=== PATIENT | female | born 1955 | race African-American/Black ===

== ENCOUNTER 2020-08-01 13:23 | Inpatient (IN) ==
[2020-08-01] MEDS ORDERED: LACTATED RINGERS 500 ML IV ONE (14:33)
[2020-08-01] MEDS ORDERED: cefTRIAXone 1,000 MG in SODIUM CHLORIDE 0.9% 100 ML IV STA (14:33)
[2020-08-01 14:42] LABS: Basophils % 0.1 % (0.0-0.8); Eosinophils % 0.1 % (0.00-10.9); Hematocrit 30.2 VOL% (35.7-47.0); Hemoglobin 9.7 GM/DL (12.0-16.0); Immature Granulocytes % 0.3 %; Immature Granulocytes Absolute 0.03 #; Lymphocytes # 0.9 10*3/uL (1.4-4.0); Lymphocytes % 9.7 % (21.3-54.2); Mean Corpuscular HGB Conc 32.1 GM/DL (32-36); Mean Corpuscular Volume 89.6 FL (87-102); Mean Platelet Volume 10.5 FL (9.6-12.0); Neutrophils % 85.8 % (38.7-73.9); Platelet Count 346 T/CUMM (130-400); Red Blood Count 3.37 MC/CUMM (3.8-5.5); Red Cell Distribution Width 17.2 % (9.3-17.3); White Blood Count 8.8 T/CUMM (4-12)
[2020-08-01 14:55] LABS: Alanine Aminotransferase 31 U/L (13-56); Albumin 3.1 G/DL (3.4-5.0); Alkaline Phosphatase 130 U/L (45-117); Aspartate Amino Transferase 43 U/L (0-37); Bilirubin,Total < 0.39 MG/DL (0.2-1.0); Blood Urea Nitrogen 25 MG/DL (7-18); Calcium 8.9 MG/DL (8.5-10.1); Carbon Dioxide 20 MMOL/L (21-32); Estimated Glom Filtration Rate 40 ML/MIN; Glucose 131 MG/DL (74-106); Osmolality,Calculated 273.2 MOS/KG (273-304); Potassium 4.3 MMOL/L (3.5-5.1); Sodium 134 MMOL/L (136-145); Total Protein 8.3 G/DL (6.4-8.3)
[2020-08-01] MEDS: AZITHROMYCIN INJ 500 MG in SODIUM CHLORIDE 0.9% 250 ML IV SCH (15:37)
[2020-08-01] MEDS ORDERED: ONDANSETRON 4 MG/2 ML VIAL IV PRN (15:44)
[2020-08-01] MEDS ORDERED: DEXTROSE 50% 25 GM/50 ML VIAL IV PRN (15:44)
[2020-08-01] MEDS ORDERED: ACETAMINOPHEN 325 MG TABLET PO PRN (15:44)
[2020-08-01] MEDS ORDERED: DOCUSATE SODIUM 100 MG CAPSULE PO PRN (15:44)
[2020-08-01] MEDS ORDERED: GLUCAGON 1 MG VIAL IM PRN (15:44)
[2020-08-01] MEDS ORDERED: methylPREDNISolone SOD SUC 125 MG/2 ML VIAL IV ONE (15:48)
[2020-08-01 16:18] LABS: Risk Ratio 2.43; Thyroid Stimulating Hormone 1.19 uIU/ml (0.358-3.74); VLDL CHOLESTEROL 32.6 MG/DL
[2020-08-01 16:26] LABS: ABG Base Excess -5.4 MMOL/L (-2.5-2.5); ABG Oxygen Saturation 96.8 % (95-100); ABG PCO2 34.2 MM HG (35-48); ABG PO2 92.9 MM HG (80-95); ABG TCO2 17.6 MMOL/L (23-27)
[2020-08-01] MEDS: ENOXAPARIN 40 MG/0.4 ML SYRINGE SUBCUT SCH (18:03)
[2020-08-01] MEDS: METOPROLOL SUCCINATE XL 25 MG TABLET PO SCH (18:04)
[2020-08-01] MEDS: FUROSEMIDE 20 MG TABLET PO SCH (18:04)
[2020-08-01] MEDS: ALBUTEROL/IPRATROPIUM 3 ML NEB RESP TX SCH (19:58)
[2020-08-01] MEDS: PREGABALIN 75 MG CAPSULE PO SCH (23:27)
[2020-08-01] MEDS: ATORVASTATIN 20 MG TABLET PO SCH (23:27)
[2020-08-01] MEDS: MOMETASONE/FORMOTEROL 200-5 INHALER 8.8 GM INH SCH (23:34)
[2020-08-02] MEDS: ALBUTEROL/IPRATROPIUM 3 ML NEB RESP TX SCH ×4 (00:57→19:36)
[2020-08-02 06:03] LABS: Basophils % 0.2 % (0.0-0.8); Hematocrit 27.1 VOL% (35.7-47.0); Hemoglobin 8.6 GM/DL (12.0-16.0); Immature Granulocytes % 0.4 %; Immature Granulocytes Absolute 0.02 #; Lymphocytes % 21.4 % (21.3-54.2); Mean Corpuscular HGB Conc 31.7 GM/DL (32-36); Mean Corpuscular Volume 90.6 FL (87-102); Mean Platelet Volume 10.9 FL (9.6-12.0); Monocytes % 9.4 % (1.7-12.7); Neutrophils % 68.6 % (38.7-73.9); Platelet Count 304 T/CUMM (130-400); Red Blood Count 2.99 MC/CUMM (3.8-5.5); Red Cell Distribution Width 17.2 % (9.3-17.3); White Blood Count 4.9 T/CUMM (4-12)
[2020-08-02 06:26] LABS: Calcium 8.4 MG/DL (8.5-10.1); Osmolality,Calculated 278.8 MOS/KG (273-304); Potassium 4.6 MMOL/L (3.5-5.1)
[2020-08-02] MEDS: SERTRALINE 50 MG TABLET PO SCH (11:04)
[2020-08-02] MEDS: FOLIC ACID 1 MG TABLET PO SCH (11:04)
[2020-08-02] MEDS: PANTOPRAZOLE 40 MG TABLET PO SCH (11:04)
[2020-08-02] MEDS: PREGABALIN 75 MG CAPSULE PO SCH ×2 (11:04→22:07)
[2020-08-02] MEDS: SPIRONOLACTONE 25 MG TABLET PO SCH (11:05)
[2020-08-02] MEDS: FUROSEMIDE 20 MG TABLET PO SCH (11:05)
[2020-08-02] MEDS: methylPREDNISolone SOD SUC 40 MG/1 ML VIAL IV SCH ×2 (11:05→18:46)
[2020-08-02] MEDS: METOPROLOL SUCCINATE XL 25 MG TABLET PO SCH (11:09)
[2020-08-02] MEDS: MOMETASONE/FORMOTEROL 200-5 INHALER 8.8 GM INH SCH ×2 (11:09→22:06)
[2020-08-02] MEDS: AZITHROMYCIN INJ 500 MG in SODIUM CHLORIDE 0.9% 250 ML IV SCH (18:30)
[2020-08-02] MEDS: cefTRIAXone 1,000 MG in SYRINGE 1 EACH IV SCH (18:30)
[2020-08-02] MEDS: ENOXAPARIN 40 MG/0.4 ML SYRINGE SUBCUT SCH (18:46)
[2020-08-02] MEDS: ATORVASTATIN 20 MG TABLET PO SCH (22:06)
[2020-08-03] MEDS: ALBUTEROL/IPRATROPIUM 3 ML NEB RESP TX SCH ×4 (00:59→19:38)
[2020-08-03] MEDS: methylPREDNISolone SOD SUC 40 MG/1 ML VIAL IV SCH ×3 (01:19→21:48)
[2020-08-03 07:53] LABS: Hematocrit 28.2 VOL% (35.7-47.0); Hemoglobin 8.9 GM/DL (12.0-16.0); Immature Granulocytes % 0.5 %; Immature Granulocytes Absolute 0.05 #; Lymphocytes % 9.3 % (21.3-54.2); Mean Corpuscular HGB Conc 31.6 GM/DL (32-36); Mean Corpuscular Volume 90.4 FL (87-102); Mean Platelet Volume 10.5 FL (9.6-12.0); Monocytes % 5.2 % (1.7-12.7); Platelet Count 379 T/CUMM (130-400); Red Blood Count 3.12 MC/CUMM (3.8-5.5); Red Cell Distribution Width 17.2 % (9.3-17.3); White Blood Count 10.9 T/CUMM (4-12)
[2020-08-03 08:07] LABS: Calcium 8.5 MG/DL (8.5-10.1); Osmolality,Calculated 280.8 MOS/KG (273-304); Potassium 4.7 MMOL/L (3.5-5.1)
[2020-08-03] MEDS: FUROSEMIDE 20 MG TABLET PO SCH (09:07)
[2020-08-03] MEDS: FOLIC ACID 1 MG TABLET PO SCH (09:07)
[2020-08-03] MEDS: METOPROLOL SUCCINATE XL 25 MG TABLET PO SCH (09:07)
[2020-08-03] MEDS: SPIRONOLACTONE 25 MG TABLET PO SCH (09:07)
[2020-08-03] MEDS: SERTRALINE 50 MG TABLET PO SCH (09:07)
[2020-08-03] MEDS: PREGABALIN 75 MG CAPSULE PO SCH ×2 (09:07→21:51)
[2020-08-03] MEDS: PANTOPRAZOLE 40 MG TABLET PO SCH (09:07)
[2020-08-03] MEDS: MOMETASONE/FORMOTEROL 200-5 INHALER 8.8 GM INH SCH ×2 (09:17→22:12)
[2020-08-03] MEDS ORDERED: PHENOL 1.4% THROAT SPRAY 177 ML BOTTLE PO PRN (10:25)
[2020-08-03 10:29] LABS: % Iron Saturation 4.9 % (18-50)
[2020-08-03] MEDS ORDERED: FERRIC GLUCONATE COMPLEX 125 MG in SODIUM CHLORIDE 0.9% 100 ML IV ONE (10:30)
[2020-08-03 10:32] LABS: Folate 18.5 NG/ML (5.38-24.0)
[2020-08-03] MEDS: cefTRIAXone 1,000 MG in SYRINGE 1 EACH IV SCH (15:18)
[2020-08-03] MEDS: AZITHROMYCIN INJ 500 MG in SODIUM CHLORIDE 0.9% 250 ML IV SCH (15:18)
[2020-08-03] MEDS: ENOXAPARIN 40 MG/0.4 ML SYRINGE SUBCUT SCH (17:03)
[2020-08-03] MEDS: ATORVASTATIN 20 MG TABLET PO SCH (21:51)
[2020-08-04] MEDS: ALBUTEROL/IPRATROPIUM 3 ML NEB RESP TX SCH ×3 (00:26→13:10)
[2020-08-04 06:08] LABS: Basophils % 0.1 % (0.0-0.8); Hematocrit 28.3 VOL% (35.7-47.0); Immature Granulocytes % 0.8 %; Immature Granulocytes Absolute 0.13 #; Lymphocytes # 1.2 10*3/uL (1.4-4.0); Lymphocytes % 7.7 % (21.3-54.2); Mean Corpuscular HGB Conc 31.8 GM/DL (32-36); Mean Corpuscular Volume 90.4 FL (87-102); Mean Platelet Volume 10.3 FL (9.6-12.0); Monocytes % 5.1 % (1.7-12.7); Neutrophils % 86.3 % (38.7-73.9); Platelet Count 415 T/CUMM (130-400); Red Blood Count 3.13 MC/CUMM (3.8-5.5); Red Cell Distribution Width 17.2 % (9.3-17.3); White Blood Count 15.5 T/CUMM (4-12)
[2020-08-04 06:36] LABS: Calcium 8.9 MG/DL (8.5-10.1); Osmolality,Calculated 276.1 MOS/KG (273-304); Potassium 4.1 MMOL/L (3.5-5.1)
[2020-08-04] MEDS: methylPREDNISolone SOD SUC 40 MG/1 ML VIAL IV SCH (09:36)
[2020-08-04] MEDS: SERTRALINE 50 MG TABLET PO SCH (09:36)
[2020-08-04] MEDS: METOPROLOL SUCCINATE XL 25 MG TABLET PO SCH (09:36)
[2020-08-04] MEDS: PANTOPRAZOLE 40 MG TABLET PO SCH (09:37)
[2020-08-04] MEDS: SPIRONOLACTONE 25 MG TABLET PO SCH (09:37)
[2020-08-04] MEDS: PREGABALIN 75 MG CAPSULE PO SCH (09:37)
[2020-08-04] MEDS: FOLIC ACID 1 MG TABLET PO SCH (09:37)
[2020-08-04] MEDS: FUROSEMIDE 20 MG TABLET PO SCH (09:37)
[2020-08-04] MEDS: MOMETASONE/FORMOTEROL 200-5 INHALER 8.8 GM INH SCH (09:41)
[2020-08-04] MEDS ORDERED: AZITHROMYCIN 250 MG TABLET PO SCH (11:00)
[2020-08-04] MEDS ORDERED: FERROUS SULFATE 325 MG TABLET PO SCH (12:00)
[2020-08-04 12:01] VITALS: BP 127/54
[2020-08-04] MEDS: cefTRIAXone 1,000 MG in SYRINGE 1 EACH IV SCH (15:06)
[2020-08-05] MEDS ORDERED: predniSONE 20 MG TABLET PO SCH (09:00)
[2020-08-05] MEDS ORDERED: LEVOFLOXACIN 500 MG TABLET PO SCH (09:00)
== END 2020-08-04 16:30 | disposition home health service (06) | DRG 194 ==
LOC: N.ED 13:23 → N.EDINP 15:21 → N.5E 15:51
PROVIDERS: ADMIT Internal Medicine; ATTEND Internal Medicine

== ENCOUNTER 2022-06-14 04:48 | Observation (INO) ==
[2022-06-14] MEDS ORDERED: ONDANSETRON 4 MG/2 ML VIAL IV PRN ×2 (05:36→09:12)
[2022-06-14] MEDS ORDERED: SODIUM CHLORIDE 0.9% 1,000 ML IV STA (05:36)
[2022-06-14] MEDS: MORPHINE 2 MG/1 ML SYRINGE IV PRN ×2 (06:02→10:05)
[2022-06-14 06:24] LABS: Basophils % 0.1 % (0.0-0.8); Eosinophils # 0.1 10*3/uL (0.0-0.87); Eosinophils % 1.1 % (0.00-10.9); Hematocrit 23.5 VOL% (35.7-47.0); Hemoglobin 6.8 GM/DL (12.0-16.0); Immature Granulocytes % 0.5 %; Immature Granulocytes Absolute 0.05 #; Lymphocytes # 1.4 10*3/uL (1.4-4.0); Lymphocytes % 13.4 % (21.3-54.2); Mean Corpuscular HGB Conc 28.9 GM/DL (32-36); Mean Corpuscular Volume 83.9 FL (87-102); Mean Platelet Volume 8.9 FL (9.6-12.0); Monocytes # 0.7 10*3/uL (0.11-0.8); Monocytes % 6.6 % (1.7-12.7); NRBC # 0.03 10*3/uL; Neutrophils % 78.3 % (38.7-73.9); Platelet Count 626 T/CUMM (130-400); Red Cell Distribution Width 19.1 % (9.3-17.3); White Blood Count 10.1 T/CUMM (4-12)
[2022-06-14 06:37] LABS: Alanine Aminotransferase 27 U/L (13-56); Albumin 3.3 G/DL (3.4-5.0); Alkaline Phosphatase 131 U/L (45-117); Amylase 90 U/L (25-115); Aspartate Amino Transferase 23 U/L (0-37); Bilirubin,Total < 0.39 MG/DL (0.20-1.00); Blood Urea Nitrogen 43 MG/DL (7-18); Calcium 9.8 MG/DL (8.5-10.1); Carbon Dioxide 26 MMOL/L (21-32); Chloride 106 MMOL/L (98-107); Glucose 112 MG/DL (74-106); Osmolality,Calculated 288.5 MOS/KG (273-304); Potassium 3.5 MMOL/L (3.5-5.1); Sodium 139 MMOL/L (136-145); Total Protein 8.2 G/DL (6.4-8.2)
[2022-06-14] MEDS ORDERED: hydrALAZINE 20 MG/1 ML VIAL IV PRN (09:12)
[2022-06-14] MEDS ORDERED: MORPHINE 2 MG/1 ML SYRINGE IV PRN (09:12)
[2022-06-14] MEDS ORDERED: DOCUSATE SODIUM 100 MG CAPSULE PO PRN (09:12)
[2022-06-14] MEDS ORDERED: ACETAMINOPHEN 325 MG TABLET PO PRN (09:12)
[2022-06-14] MEDS ORDERED: SODIUM CHLORIDE 0.9% 1,000 ML IV PRN ×2 (09:12→12:23)
[2022-06-14] MEDS ORDERED: LIDOCAINE 5% PATCH TRANSDERM PRN (09:15)
[2022-06-14] MEDS ORDERED: FLUTICASONE 50 MCG NASAL SPRAY 16 GM BOTTLE BOTH NARES PRN (09:15)
[2022-06-14] MEDS ORDERED: METHOCARBAMOL 500 MG TABLET PO PRN (09:15)
[2022-06-14] MEDS ORDERED: CYCLOBENZAPRINE 10 MG TABLET PO PRN (09:15)
[2022-06-14] MEDS ORDERED: LINACLOTIDE 145 MCG CAPSULE PO PRN (09:15)
[2022-06-14] MEDS: ERTAPENEM 1,000 MG in SODIUM CHLORIDE 0.9% 100 ML IV SCH (09:35)
[2022-06-14] MEDS: METOPROLOL SUCCINATE XL 25 MG TABLET PO SCH (09:37)
[2022-06-14] MEDS: PANTOPRAZOLE 40 MG TABLET PO SCH (09:38)
[2022-06-14] MEDS: ATORVASTATIN 10 MG TABLET PO SCH (09:39)
[2022-06-14] MEDS: PROMETHAZINE 25 MG TABLET PO SCH ×2 (09:39→21:00)
[2022-06-14 09:51] LABS: % Iron Saturation 6.9 % (18-50); Ferritin 33.4 ng/mL (8-252)
[2022-06-14 09:56] LABS: Bacteria,Urine Occasional /HPF (Few); RBC,Urine 1 /HPF (0-4); Squamous Epithelial Cell,Urine Occasional /HPF (0-10)
[2022-06-14 09:58] LABS: Bilirubin,Urine Negative (Negative); Blood, Urine Negative (Negative); Glucose,Urine (UA) Negative (Negative); Ketones,Urine Negative (Negative); Nitrite,Urine Negative (Negative); Protein,Urine Negative (Negative); Urine Appearance Clear (Clear); Urine Color Yellow (Yellow); Urine Specific Gravity 1.015 (1.001-1.035); Urine Urobilinogen 0.2 eU/dL (<2.0)
[2022-06-14] MEDS: SPIRONOLACTONE 25 MG TABLET PO SCH (15:03)
[2022-06-14] MEDS: GABAPENTIN 400 MG CAPSULE PO SCH ×2 (16:42→21:00)
[2022-06-14] MEDS ORDERED: AMITRIPTYLINE 50 MG TABLET PO SCH (21:00)
[2022-06-14 21:22] LABS: Hematocrit 26.5 VOL% (35.7-47.0); Hemoglobin 8.3 GM/DL (12.0-16.0)
[2022-06-15 05:22] LABS: Basophils % 0.2 % (0.0-0.8); Eosinophils # 0.2 10*3/uL (0.0-0.87); Eosinophils % 2.8 % (0.00-10.9); Hematocrit 27.1 VOL% (35.7-47.0); Hemoglobin 8.5 GM/DL (12.0-16.0); Immature Granulocytes % 0.3 %; Immature Granulocytes Absolute 0.03 #; Lymphocytes # 1.5 10*3/uL (1.4-4.0); Lymphocytes % 17.8 % (21.3-54.2); Mean Corpuscular HGB Conc 31.4 GM/DL (32-36); Mean Corpuscular Volume 85.8 FL (87-102); Mean Platelet Volume 8.9 FL (9.6-12.0); Monocytes # 0.7 10*3/uL (0.11-0.8); Monocytes % 8.2 % (1.7-12.7); NRBC # 0.03 10*3/uL; Neutrophils % 70.7 % (38.7-73.9); Platelet Count 542 T/CUMM (130-400); Red Blood Count 3.16 MC/CUMM (3.8-5.5); Red Cell Distribution Width 18.2 % (9.3-17.3); White Blood Count 8.7 T/CUMM (4-12)
[2022-06-15 05:41] LABS: Alanine Aminotransferase 24 U/L (13-56); Alkaline Phosphatase 119 U/L (45-117); Aspartate Amino Transferase 21 U/L (0-37); Bilirubin,Total < 0.39 MG/DL (0.20-1.00); Blood Urea Nitrogen 29 MG/DL (7-18); Calcium 9.2 MG/DL (8.5-10.1); Carbon Dioxide 26 MMOL/L (21-32); Chloride 108 MMOL/L (98-107); Glucose 96 MG/DL (74-106); Osmolality,Calculated 284.4 MOS/KG (273-304); Potassium 3.6 MMOL/L (3.5-5.1); Sodium 140 MMOL/L (136-145); Total Protein 7.4 G/DL (6.4-8.2)
[2022-06-15] MEDS: PROMETHAZINE 25 MG TABLET PO SCH (08:18)
[2022-06-15] MEDS: ATORVASTATIN 10 MG TABLET PO SCH (08:19)
[2022-06-15] MEDS: GABAPENTIN 400 MG CAPSULE PO SCH (08:19)
[2022-06-15] MEDS: SPIRONOLACTONE 25 MG TABLET PO SCH (08:20)
[2022-06-15] MEDS: METOPROLOL SUCCINATE XL 25 MG TABLET PO SCH (08:20)
[2022-06-15] MEDS: PANTOPRAZOLE 40 MG TABLET PO SCH (08:20)
[2022-06-15] MEDS: ERTAPENEM 1,000 MG in SODIUM CHLORIDE 0.9% 100 ML IV SCH (08:22)
[2022-06-15] MEDS ORDERED: POTASSIUM CHLORIDE 20 MEQ TABLET PO SCH (09:00)
[2022-06-15] MEDS ORDERED: LOSARTAN 50 MG TABLET PO SCH (09:00)
[2022-06-15] MEDS ORDERED: DAPAGLIFLOZIN 10 MG TABLET PO SCH (09:00)
[2022-06-15] MEDS ORDERED: FUROSEMIDE 40 MG TABLET PO SCH (09:00)
[2022-06-15] MEDS ORDERED: FOLIC ACID 1 MG TABLET PO SCH (09:00)
[2022-06-15] MEDS ORDERED: ASPIRIN EC 81 MG TABLET PO SCH (09:00)
[2022-06-15] MEDS ORDERED: ERTAPENEM 1,000 MG in SODIUM CHLORIDE 0.9% 100 ML IV SCH (11:00)
[2022-06-15 11:45] VITALS: BP 114/53
[2022-06-18] MEDS ORDERED: ERGOCALCIFEROL 50,000 UNIT CAPSULE PO SCH (09:15)
== END 2022-06-15 14:02 | disposition home or self-care (01) ==
LOC: N.EDINP 04:48 → N.ED 04:48 → N.EDINP 12:00 → N.2E 12:18
PROVIDERS: ADMIT Internal Medicine; ATTEND Internal Medicine

== ENCOUNTER 2022-07-05 05:41 | Inpatient (IN) ==
[2022-06-28 11:24] LABS: Basophils % 0.2 % (0.0-0.8); Eosinophils # 0.3 10*3/uL (0.0-0.87); Eosinophils % 2.7 % (0.00-10.9); Hematocrit 30.2 VOL% (35.7-47.0); Hemoglobin 9.2 GM/DL (12.0-16.0); Immature Granulocytes % 0.5 %; Immature Granulocytes Absolute 0.05 #; Lymphocytes # 1.5 10*3/uL (1.4-4.0); Lymphocytes % 15.1 % (21.3-54.2); Mean Corpuscular HGB Conc 30.5 GM/DL (32-36); Mean Corpuscular Volume 84.8 FL (87-102); Mean Platelet Volume 9.4 FL (9.6-12.0); Monocytes # 0.8 10*3/uL (0.11-0.8); Monocytes % 8.4 % (1.7-12.7); Neutrophils % 73.1 % (38.7-73.9); Platelet Count 483 T/CUMM (130-400); Red Blood Count 3.56 MC/CUMM (3.8-5.5); Red Cell Distribution Width 19.6 % (9.3-17.3); White Blood Count 9.8 T/CUMM (4-12)
[2022-06-28 11:35] LABS: PT Patient Result 10.8 SECS (10.1-12.1); Partial Thromboplastin Time 29.5 SECS (23.7-32.9)
[2022-06-28 11:38] LABS: Alanine Aminotransferase 24 U/L (13-56); Albumin 3.4 G/DL (3.4-5.0); Alkaline Phosphatase 146 U/L (45-117); Aspartate Amino Transferase 24 U/L (0-37); Bilirubin,Total < 0.39 MG/DL (0.20-1.00); Blood Urea Nitrogen 35 MG/DL (7-18); Calcium 9.8 MG/DL (8.5-10.1); Carbon Dioxide 30 MMOL/L (21-32); Chloride 104 MMOL/L (98-107); Glucose 87 MG/DL (74-106); Osmolality,Calculated 285.4 MOS/KG (273-304); Potassium 4.3 MMOL/L (3.5-5.1); Sodium 140 MMOL/L (136-145); Total Protein 7.7 G/DL (6.4-8.2)
[2022-06-28 11:44] LABS: Bacteria,Urine Occasional /HPF (Few); Hyaline Casts,Urine 1 /LPF (0-3); Mucus,Urine Occasional /LPF (Occasional); Squamous Epithelial Cell,Urine Occasional /HPF (0-10)
[2022-06-28 11:45] LABS: Bilirubin,Urine Negative (Negative); Blood, Urine Negative (Negative); Glucose,Urine (UA) 100 mg/dL (Negative); Ketones,Urine Negative (Negative); Nitrite,Urine Negative (Negative); Protein,Urine Negative (Negative); Urine Appearance Clear (Clear); Urine Color Yellow (Yellow); Urine Specific Gravity 1.015 (1.001-1.035); Urine Urobilinogen 0.2 eU/dL (<2.0)
[2022-07-05] MEDS ORDERED: VANCOMYCIN INJ 1,000 MG in SODIUM CHLORIDE 0.9% 250 ML IV ONE ×2 (06:00→15:04)
[2022-07-05] MEDS ORDERED: CLINDAMYCIN INJ 900 MG/50 ML PREMIX IV ONE (06:00)
[2022-07-05] MEDS: LACTATED RINGERS 1,000 ML IV SCH ×5 (06:05→23:11)
[2022-07-05] MEDS ORDERED: DIAZEPAM 5 MG TABLET PO ONE (06:23)
[2022-07-05] MEDS ORDERED: FAMOTIDINE 20 MG TABLET PO ONE (06:23)
[2022-07-05] MEDS ORDERED: ACETAMINOPHEN 500 MG TABLET PO ONE (06:23)
[2022-07-05] MEDS ORDERED: ALBUTEROL/IPRATROPIUM 3 ML NEB RESP TX ONE (06:23)
[2022-07-05] MEDS ORDERED: LIDOCAINE 1% 5 ML VIAL ONE (06:36)
[2022-07-05] MEDS ORDERED: DEXAMETHASONE 4 MG/1 ML VIAL ONE (06:36)
[2022-07-05] MEDS ORDERED: ROPIVACAINE 0.5% 30 ML VIAL ONE (06:36)
[2022-07-05] MEDS ORDERED: ETOMIDATE 40 MG/20 ML VIAL IV ONE (06:38)
[2022-07-05] MEDS ORDERED: PHENYLEPHRINE 1 MG/10 ML SYRINGE IV ONE ×2 (06:38→08:07)
[2022-07-05] MEDS ORDERED: SEVOFLURANE 1 UNIT/15 MINUTE INH ONE (06:38)
[2022-07-05] MEDS ORDERED: propofoL 200 MG/20 ML VIAL IV ONE (06:38)
[2022-07-05] MEDS ORDERED: LIDOCAINE 2% 5 ML VIAL ONE (06:38)
[2022-07-05] MEDS ORDERED: ONDANSETRON 4 MG/2 ML VIAL ONE (06:38)
[2022-07-05] MEDS ORDERED: ROCURONIUM 50 MG/5 ML VIAL IV ONE (06:38)
[2022-07-05] MEDS ORDERED: fentaNYL 250 MCG/5 ML VIAL ONE (06:39)
[2022-07-05] MEDS ORDERED: MIDAZOLAM 2 MG/2 ML VIAL ONE (06:39)
[2022-07-05] MEDS ORDERED: ZALEPLON 5 MG CAPSULE PO PRN (06:57)
[2022-07-05] MEDS ORDERED: METHOCARBAMOL 500 MG TABLET PO PRN (06:57)
[2022-07-05] MEDS ORDERED: CYCLOBENZAPRINE 10 MG TABLET PO PRN (06:57)
[2022-07-05] MEDS ORDERED: ALBUTEROL 2.5 MG/3 ML NEB RESP TX PRN (06:57)
[2022-07-05] MEDS ORDERED: FLUTICASONE 50 MCG NASAL SPRAY 16 GM BOTTLE BOTH NARES PRN (06:57)
[2022-07-05] MEDS ORDERED: BACITRACIN OINT 0.9 GM PACK TOP ONE (07:01)
[2022-07-05] MEDS ORDERED: diphenhydrAMINE CAP 25 MG CAPSULE PO PRN (07:04)
[2022-07-05] MEDS ORDERED: MORPHINE 2 MG/1 ML SYRINGE IV PRN (07:04)
[2022-07-05] MEDS ORDERED: TRANEXAMIC ACID 1,000 MG/10 ML VIAL ONE (07:36)
[2022-07-05] MEDS ORDERED: PHENYLEPHRINE 10 MG/1 ML VIAL IV ONE (08:26)
[2022-07-05] MEDS ORDERED: SODIUM CHLORIDE 0.9% 250 ML IV ONE (08:26)
[2022-07-05] MEDS ORDERED: LACTATED RINGERS 1,000 ML IV ONE (08:54)
[2022-07-05] MEDS ORDERED: ePHEDrine 50 MG/ML VIAL ONE (09:11)
[2022-07-05] MEDS ORDERED: SUGAMMADEX 200 MG/2 ML VIAL IV ONE (09:28)
[2022-07-05] MEDS ORDERED: MEPERIDINE 25 MG/1 ML VIAL IV PRN (09:52)
[2022-07-05] MEDS ORDERED: ONDANSETRON 4 MG/2 ML VIAL IV PRN (09:52)
[2022-07-05] MEDS ORDERED: CLINDAMYCIN INJ 900 MG/50 ML PREMIX IV SCH (11:30)
[2022-07-05] MEDS: GABAPENTIN 400 MG CAPSULE PO SCH ×3 (11:32→20:34)
[2022-07-05] MEDS ORDERED: GLUCAGON 1 MG VIAL IM PRN (11:45)
[2022-07-05] MEDS ORDERED: DEXTROSE 10% 250 ML BAG IV PRN (11:45)
[2022-07-05] MEDS: INSULIN LISPRO 100 UNIT/ML SUBCUT SCH ×3 (11:50→20:35)
[2022-07-05] MEDS: DOCUSATE SODIUM 100 MG CAPSULE PO SCH ×2 (12:49→20:34)
[2022-07-05] MEDS: CLINDAMYCIN INJ 900 MG/50 ML PREMIX IV SCH ×2 (14:00→21:31)
[2022-07-05] MEDS: MORPHINE 2 MG/1 ML SYRINGE IV PRN ×3 (14:34→20:35)
[2022-07-05] MEDS: SENNA 8.6 MG TABLET PO SCH (20:34)
[2022-07-05] MEDS: AMITRIPTYLINE 50 MG TABLET PO SCH (20:34)
[2022-07-05] MEDS ORDERED: CIPROFLOXACIN 100 MG/ML 100 ML/BOTTLE PO SCH (21:00)
[2022-07-05] MEDS ORDERED: PROMETHAZINE 25 MG TABLET PO SCH (21:00)
[2022-07-06] MEDS ORDERED: FONDAPARINUX 2.5 MG/0.5 ML SYRINGE SUBCUT SCH (05:00)
[2022-07-06 05:43] LABS: Calcium 8.8 MG/DL (8.5-10.1); Osmolality,Calculated 285.7 MOS/KG (273-304); Potassium 4.6 MMOL/L (3.5-5.1)
[2022-07-06 06:21] LABS: Basophils % 0.2 % (0.0-0.8); Eosinophils % 0.2 % (0.00-10.9); Hematocrit 22.6 VOL% (35.7-47.0); Immature Granulocytes % 0.9 %; Immature Granulocytes Absolute 0.09 #; Lymphocytes # 0.9 10*3/uL (1.4-4.0); Lymphocytes % 8.8 % (21.3-54.2); Mean Corpuscular Volume 83.7 FL (87-102); Mean Platelet Volume 9.7 FL (9.6-12.0); Monocytes # 0.9 10*3/uL (0.11-0.8); Monocytes % 8.5 % (1.7-12.7); Neutrophils % 81.4 % (38.7-73.9); Platelet Count 364 T/CUMM (130-400); Red Cell Distribution Width 19.8 % (9.3-17.3); White Blood Count 10.2 T/CUMM (4-12)
[2022-07-06] MEDS ORDERED: FUROSEMIDE 40 MG/4 ML VIAL IV PRN (06:57)
[2022-07-06] MEDS ORDERED: SODIUM CHLORIDE 0.9% 1,000 ML IV PRN (06:57)
[2022-07-06] MEDS ORDERED: MORPHINE 2 MG/1 ML SYRINGE IV PRN (07:25)
[2022-07-06] MEDS: ACETAMINOPHEN 325 MG TABLET PO PRN (09:05)
[2022-07-06] MEDS: MORPHINE 10 MG/1 ML VIAL IV PRN ×2 (09:54→12:57)
[2022-07-06] MEDS: METOPROLOL SUCCINATE XL 25 MG TABLET PO SCH (09:55)
[2022-07-06] MEDS: INSULIN LISPRO 100 UNIT/ML SUBCUT SCH ×4 (09:55→21:44)
[2022-07-06] MEDS: DOCUSATE SODIUM 100 MG CAPSULE PO SCH ×2 (09:55→21:42)
[2022-07-06] MEDS: POTASSIUM CHLORIDE 20 MEQ TABLET PO SCH (09:57)
[2022-07-06] MEDS: GABAPENTIN 400 MG CAPSULE PO SCH ×3 (09:57→21:42)
[2022-07-06] MEDS: APIXABAN 2.5 MG TABLET PO SCH ×2 (09:57→21:48)
[2022-07-06] MEDS: DAPAGLIFLOZIN 10 MG TABLET PO SCH (09:57)
[2022-07-06] MEDS: PANTOPRAZOLE 40 MG TABLET PO SCH (09:57)
[2022-07-06] MEDS: FUROSEMIDE 40 MG TABLET PO SCH (09:57)
[2022-07-06] MEDS: ASPIRIN EC 81 MG TABLET PO SCH (09:57)
[2022-07-06] MEDS: DULoxetine 30 MG CAPSULE PO SCH (09:57)
[2022-07-06] MEDS: SPIRONOLACTONE 25 MG TABLET PO SCH (09:57)
[2022-07-06] MEDS: ATORVASTATIN 10 MG TABLET PO SCH (09:58)
[2022-07-06] MEDS: LOSARTAN 50 MG TABLET PO SCH (09:58)
[2022-07-06] MEDS: FOLIC ACID 1 MG TABLET PO SCH (09:58)
[2022-07-06] MEDS: CLINDAMYCIN INJ 900 MG/50 ML PREMIX IV SCH ×2 (12:56→21:44)
[2022-07-06] MEDS: AMITRIPTYLINE 50 MG TABLET PO SCH (21:42)
[2022-07-06] MEDS: SENNA 8.6 MG TABLET PO SCH (21:42)
[2022-07-07] MEDS: CLINDAMYCIN INJ 900 MG/50 ML PREMIX IV SCH ×3 (05:00→20:13)
[2022-07-07 05:42] LABS: Basophils % 0.2 % (0.0-0.8); Eosinophils # 0.2 10*3/uL (0.0-0.87); Eosinophils % 1.2 % (0.00-10.9); Hematocrit 30.7 VOL% (35.7-47.0); Hemoglobin 9.7 GM/DL (12.0-16.0); Immature Granulocytes % 0.8 %; Immature Granulocytes Absolute 0.11 #; Lymphocytes # 1.5 10*3/uL (1.4-4.0); Lymphocytes % 11.3 % (21.3-54.2); Mean Corpuscular HGB Conc 31.6 GM/DL (32-36); Mean Corpuscular Volume 84.3 FL (87-102); Mean Platelet Volume 8.9 FL (9.6-12.0); Monocytes # 1.2 10*3/uL (0.11-0.8); Neutrophils % 77.5 % (38.7-73.9); Platelet Count 311 T/CUMM (130-400); Red Blood Count 3.64 MC/CUMM (3.8-5.5); Red Cell Distribution Width 19.2 % (9.3-17.3); White Blood Count 13.6 T/CUMM (4-12)
[2022-07-07] MEDS: ACETAMINOPHEN 325 MG TABLET PO PRN ×2 (06:09→17:00)
[2022-07-07] MEDS: INSULIN LISPRO 100 UNIT/ML SUBCUT SCH ×4 (07:35→20:29)
[2022-07-07] MEDS: DULoxetine 30 MG CAPSULE PO SCH (08:49)
[2022-07-07] MEDS: LOSARTAN 50 MG TABLET PO SCH (08:49)
[2022-07-07] MEDS: METOPROLOL SUCCINATE XL 25 MG TABLET PO SCH (08:49)
[2022-07-07] MEDS: ASPIRIN EC 81 MG TABLET PO SCH (08:50)
[2022-07-07] MEDS: FOLIC ACID 1 MG TABLET PO SCH (08:50)
[2022-07-07] MEDS: POTASSIUM CHLORIDE 20 MEQ TABLET PO SCH (08:50)
[2022-07-07] MEDS: DAPAGLIFLOZIN 10 MG TABLET PO SCH (08:50)
[2022-07-07] MEDS: DOCUSATE SODIUM 100 MG CAPSULE PO SCH ×2 (08:50→20:14)
[2022-07-07] MEDS: FUROSEMIDE 40 MG TABLET PO SCH (08:50)
[2022-07-07] MEDS: GABAPENTIN 400 MG CAPSULE PO SCH ×3 (08:50→20:14)
[2022-07-07] MEDS: PANTOPRAZOLE 40 MG TABLET PO SCH (08:50)
[2022-07-07] MEDS: SPIRONOLACTONE 25 MG TABLET PO SCH (08:50)
[2022-07-07] MEDS: ATORVASTATIN 10 MG TABLET PO SCH (08:50)
[2022-07-07] MEDS: SENNA 8.6 MG TABLET PO SCH (20:14)
[2022-07-07] MEDS: AMITRIPTYLINE 50 MG TABLET PO SCH (20:14)
[2022-07-08] MEDS: ACETAMINOPHEN 325 MG TABLET PO PRN ×2 (02:42→08:50)
[2022-07-08] MEDS: CLINDAMYCIN INJ 900 MG/50 ML PREMIX IV SCH ×3 (03:00→23:43)
[2022-07-08] MEDS: PANTOPRAZOLE 40 MG TABLET PO SCH (06:44)
[2022-07-08 06:57] LABS: Basophils % 0.2 % (0.0-0.8); Eosinophils % 0.1 % (0.00-10.9); Hemoglobin 10.2 GM/DL (12.0-16.0); Immature Granulocytes % 0.6 %; Immature Granulocytes Absolute 0.14 #; Lymphocytes # 1.1 10*3/uL (1.4-4.0); Mean Corpuscular HGB Conc 31.9 GM/DL (32-36); Mean Corpuscular Volume 81.8 FL (87-102); Mean Platelet Volume 9.4 FL (9.6-12.0); Monocytes # 1.6 10*3/uL (0.11-0.8); Neutrophils % 87.1 % (38.7-73.9); Platelet Count 339 T/CUMM (130-400); Red Blood Count 3.91 MC/CUMM (3.8-5.5); Red Cell Distribution Width 19.4 % (9.3-17.3)
[2022-07-08] MEDS: INSULIN LISPRO 100 UNIT/ML SUBCUT SCH ×4 (07:13→21:13)
[2022-07-08 07:24] LABS: Anisocytosis 1+; Band Neutrophils 1 % (0-10); Lymphocytes 7 % (20-55); Myelocytes 1 %; Platelet Estimate Normal; Total Cells Counted 100
[2022-07-08] MEDS: ASPIRIN EC 81 MG TABLET PO SCH (08:30)
[2022-07-08] MEDS: METOPROLOL SUCCINATE XL 25 MG TABLET PO SCH (08:30)
[2022-07-08] MEDS: DAPAGLIFLOZIN 10 MG TABLET PO SCH (08:30)
[2022-07-08] MEDS: FOLIC ACID 1 MG TABLET PO SCH (08:30)
[2022-07-08] MEDS: DOCUSATE SODIUM 100 MG CAPSULE PO SCH ×2 (08:30→21:17)
[2022-07-08] MEDS: LOSARTAN 50 MG TABLET PO SCH (08:30)
[2022-07-08] MEDS: DULoxetine 30 MG CAPSULE PO SCH (08:30)
[2022-07-08] MEDS: FUROSEMIDE 40 MG TABLET PO SCH (08:31)
[2022-07-08] MEDS: ATORVASTATIN 10 MG TABLET PO SCH (08:31)
[2022-07-08] MEDS: SPIRONOLACTONE 25 MG TABLET PO SCH (08:31)
[2022-07-08] MEDS: POTASSIUM CHLORIDE 20 MEQ TABLET PO SCH (08:31)
[2022-07-08] MEDS: GABAPENTIN 400 MG CAPSULE PO SCH ×3 (08:31→21:17)
[2022-07-08] MEDS: ONDANSETRON 4 MG/2 ML VIAL IV PRN (08:51)
[2022-07-08 15:12] LABS: Albumin 2.7 G/DL (3.4-5.0); Bilirubin,Total 0.9 MG/DL (0.20-1.00); Calcium 9.3 MG/DL (8.5-10.1); Osmolality,Calculated 269.7 MOS/KG (273-304); Potassium 4.6 MMOL/L (3.5-5.1); Total Protein 7.1 G/DL (6.4-8.2)
[2022-07-08] MEDS ORDERED: SODIUM CHLORIDE 0.9% 500 ML IV ONE (16:58)
[2022-07-08] MEDS ORDERED: LACTATED RINGERS 1,000 ML IV SCH (17:00)
[2022-07-08] MEDS: SENNA 8.6 MG TABLET PO SCH (21:17)
[2022-07-08] MEDS: AMITRIPTYLINE 50 MG TABLET PO SCH (21:17)
[2022-07-08] MEDS: MAGNESIUM HYDROXIDE SUSP 30 ML UDCUP PO PRN (22:29)
[2022-07-09 04:19] LABS: Basophils % 0.1 % (0.0-0.8); Eosinophils # 0.1 10*3/uL (0.0-0.87); Eosinophils % 0.7 % (0.00-10.9); Hematocrit 29.9 VOL% (35.7-47.0); Hemoglobin 9.8 GM/DL (12.0-16.0); Immature Granulocytes % 0.7 %; Immature Granulocytes Absolute 0.12 #; Lymphocytes # 0.9 10*3/uL (1.4-4.0); Mean Corpuscular HGB Conc 32.8 GM/DL (32-36); Mean Corpuscular Volume 81.3 FL (87-102); Monocytes # 1.7 10*3/uL (0.11-0.8); Monocytes % 9.1 % (1.7-12.7); Neutrophils % 84.4 % (38.7-73.9); Platelet Count 365 T/CUMM (130-400); Red Blood Count 3.68 MC/CUMM (3.8-5.5); Red Cell Distribution Width 19.6 % (9.3-17.3); White Blood Count 18.2 T/CUMM (4-12)
[2022-07-09 04:39] LABS: Calcium 9.7 MG/DL (8.5-10.1); Osmolality,Calculated 267.1 MOS/KG (273-304); Potassium 5.4 MMOL/L (3.5-5.1)
[2022-07-09 06:00] LABS: Bacteria,Urine Occasional /HPF (Few); Hyaline Casts,Urine 1 /LPF (0-3); Mucus,Urine Occasional /LPF (Occasional); RBC,Urine 4 /HPF (0-4); Squamous Epithelial Cell,Urine Few /HPF (0-10)
[2022-07-09 06:01] LABS: Bilirubin,Urine Negative (Negative); Blood, Urine Trace mg/dL (Negative); Glucose,Urine (UA) Negative (Negative); Ketones,Urine Negative (Negative); Nitrite,Urine Negative (Negative); Protein,Urine 30 mg/dL (Negative); Urine Appearance Clear (Clear); Urine Color Yellow (Yellow); Urine Urobilinogen 0.2 eU/dL (<2.0); Urine pH 5.5 (4.5-8.0)
[2022-07-09] MEDS: INSULIN LISPRO 100 UNIT/ML SUBCUT SCH ×4 (08:05→23:07)
[2022-07-09] MEDS: GABAPENTIN 400 MG CAPSULE PO SCH ×3 (08:35→22:21)
[2022-07-09] MEDS: LOSARTAN 50 MG TABLET PO SCH (08:35)
[2022-07-09] MEDS: APIXABAN 2.5 MG TABLET PO SCH ×2 (08:35→22:20)
[2022-07-09] MEDS: FOLIC ACID 1 MG TABLET PO SCH (08:35)
[2022-07-09] MEDS: DAPAGLIFLOZIN 10 MG TABLET PO SCH (08:36)
[2022-07-09] MEDS: ASPIRIN EC 81 MG TABLET PO SCH (08:36)
[2022-07-09] MEDS: ATORVASTATIN 10 MG TABLET PO SCH (08:36)
[2022-07-09] MEDS: PANTOPRAZOLE 40 MG TABLET PO SCH (08:36)
[2022-07-09] MEDS: SPIRONOLACTONE 25 MG TABLET PO SCH (08:36)
[2022-07-09] MEDS: DOCUSATE SODIUM 100 MG CAPSULE PO SCH ×2 (08:36→22:21)
[2022-07-09] MEDS: FUROSEMIDE 40 MG TABLET PO SCH (08:36)
[2022-07-09] MEDS: METOPROLOL SUCCINATE XL 25 MG TABLET PO SCH (08:36)
[2022-07-09] MEDS: DULoxetine 30 MG CAPSULE PO SCH (08:36)
[2022-07-09] MEDS ORDERED: SODIUM PHOSPHATE ENEMA 133 ML BOTTLE RECTAL PRN (08:47)
[2022-07-09] MEDS ORDERED: ERGOCALCIFEROL 50,000 UNIT CAPSULE PO SCH (09:00)
[2022-07-09] MEDS ORDERED: BISACODYL 10 MG SUPP RECTAL ONE (09:00)
[2022-07-09] MEDS: CLINDAMYCIN INJ 900 MG/50 ML PREMIX IV SCH (09:37)
[2022-07-09] MEDS: SODIUM CHLORIDE 0.9% 1,000 ML IV SCH ×2 (16:45→23:09)
[2022-07-09] MEDS: ONDANSETRON 4 MG/2 ML VIAL IV PRN ×2 (16:45→22:25)
[2022-07-09] MEDS: AMITRIPTYLINE 50 MG TABLET PO SCH (22:21)
[2022-07-09] MEDS: SENNA 8.6 MG TABLET PO SCH (22:21)
[2022-07-09] MEDS: ACETAMINOPHEN 325 MG TABLET PO PRN (22:21)
[2022-07-10 05:59] LABS: Basophils % 0.2 % (0.0-0.8); Eosinophils % 0.2 % (0.00-10.9); Hematocrit 31.2 VOL% (35.7-47.0); Immature Granulocytes % 0.5 %; Immature Granulocytes Absolute 0.08 #; Lymphocytes # 0.5 10*3/uL (1.4-4.0); Mean Corpuscular HGB Conc 32.1 GM/DL (32-36); Mean Corpuscular Volume 83.4 FL (87-102); Monocytes # 1.2 10*3/uL (0.11-0.8); NRBC # 0.03 10*3/uL; Neutrophils % 89.1 % (38.7-73.9); Platelet Count 457 T/CUMM (130-400); Red Blood Count 3.74 MC/CUMM (3.8-5.5); White Blood Count 17.2 T/CUMM (4-12)
[2022-07-10 06:09] LABS: Calcium 9.8 MG/DL (8.5-10.1); Osmolality,Calculated 275.8 MOS/KG (273-304); Potassium 4.2 MMOL/L (3.5-5.1)
[2022-07-10 06:14] LABS: Phosphorous 5.2 MG/DL (2.5-4.9); Uric Acid 10.5 MG/DL (2.6-6.0)
[2022-07-10 06:18] LABS: 25 Hydroxy Vitamin D Total 66.4 NG/ML (30-100)
[2022-07-10] MEDS: ONDANSETRON 4 MG/2 ML VIAL IV PRN ×2 (06:23→20:25)
[2022-07-10 06:41] LABS: Anisocytosis 1+; Band Neutrophils 7 % (0-10); Eosinophils 1 % (0-10); Lymphocytes 2 % (20-55); Platelet Estimate Normal; Total Cells Counted 100
[2022-07-10 06:42] LABS: Parathyroid Hormone Intact 36.5 PG/ML (18.4-80.1)
[2022-07-10] MEDS: INSULIN LISPRO 100 UNIT/ML SUBCUT SCH ×3 (07:28→17:04)
[2022-07-10] MEDS ORDERED: PROMETHAZINE 25 MG/1 ML VIAL IM PRN (08:13)
[2022-07-10 09:08] LABS: % Iron Saturation 6.5 % (18-50)
[2022-07-10] MEDS: SODIUM CHLORIDE 0.9% 1,000 ML IV SCH ×2 (09:30→20:50)
[2022-07-10 09:31] LABS: Folate > 24.00 NG/ML (5.38-24.0); Vitamin B12 774 PG/ML (211-911)
[2022-07-10] MEDS: SPIRONOLACTONE 25 MG TABLET PO SCH (09:40)
[2022-07-10] MEDS: LOSARTAN 50 MG TABLET PO SCH (09:40)
[2022-07-10] MEDS: ASPIRIN EC 81 MG TABLET PO SCH (09:40)
[2022-07-10] MEDS: DULoxetine 30 MG CAPSULE PO SCH (09:40)
[2022-07-10] MEDS: DOCUSATE SODIUM 100 MG CAPSULE PO SCH (09:40)
[2022-07-10] MEDS: FUROSEMIDE 40 MG TABLET PO SCH (09:41)
[2022-07-10] MEDS: FOLIC ACID 1 MG TABLET PO SCH (09:41)
[2022-07-10] MEDS: DAPAGLIFLOZIN 10 MG TABLET PO SCH (09:41)
[2022-07-10] MEDS: POLYETHYLENE GLYCOL POWDER 17 GM PACK PO SCH (09:41)
[2022-07-10] MEDS: APIXABAN 2.5 MG TABLET PO SCH ×2 (09:41→21:54)
[2022-07-10] MEDS: ATORVASTATIN 10 MG TABLET PO SCH (09:41)
[2022-07-10] MEDS: METOPROLOL SUCCINATE XL 25 MG TABLET PO SCH (09:42)
[2022-07-10] MEDS: GABAPENTIN 400 MG CAPSULE PO SCH ×3 (09:42→21:54)
[2022-07-10] MEDS: PANTOPRAZOLE 40 MG TABLET PO SCH (10:04)
[2022-07-10] MEDS: PANTOPRAZOLE 40 MG VIAL IV SCH (10:20)
[2022-07-10] MEDS: LINACLOTIDE 145 MCG CAPSULE PO SCH (10:24)
[2022-07-10] MEDS: FERRIC GLUCONATE COMPLEX 125 MG in SODIUM CHLORIDE 0.9% 100 ML IV SCH (14:00)
[2022-07-10] MEDS: MEROPENEM 500 MG in SODIUM CHLORIDE 0.9% 100 ML IV SCH (17:00)
[2022-07-10] MEDS ORDERED: MORPHINE 2 MG/1 ML SYRINGE IV ONE (19:41)
[2022-07-10] MEDS: DOCUSATE SODIUM 100 MG/10 ML UDCUP NG SCH (21:53)
[2022-07-10] MEDS: AMITRIPTYLINE 50 MG TABLET PO SCH (21:54)
[2022-07-10] MEDS: SENNA 8.6 MG TABLET PO SCH (21:54)
[2022-07-10] MEDS: ACETAMINOPHEN 325 MG TABLET PO PRN (21:55)
[2022-07-11] MEDS: SODIUM CHLORIDE 0.9% 1,000 ML IV SCH ×3 (02:52→16:15)
[2022-07-11] MEDS: MEROPENEM 500 MG in SODIUM CHLORIDE 0.9% 100 ML IV SCH ×2 (03:52→15:33)
[2022-07-11 05:35] LABS: Basophils % 0.1 % (0.0-0.8); Eosinophils # 0.1 10*3/uL (0.0-0.87); Hematocrit 26.6 VOL% (35.7-47.0); Hemoglobin 8.4 GM/DL (12.0-16.0); Immature Granulocytes % 0.7 %; Immature Granulocytes Absolute 0.09 #; Lymphocytes # 0.7 10*3/uL (1.4-4.0); Lymphocytes % 5.5 % (21.3-54.2); Mean Corpuscular HGB Conc 31.6 GM/DL (32-36); Mean Corpuscular Volume 82.1 FL (87-102); Monocytes # 1.4 10*3/uL (0.11-0.8); Monocytes % 10.5 % (1.7-12.7); NRBC # 0.02 10*3/uL; Neutrophils % 82.2 % (38.7-73.9); Platelet Count 427 T/CUMM (130-400); Red Blood Count 3.24 MC/CUMM (3.8-5.5); Red Cell Distribution Width 20.5 % (9.3-17.3); White Blood Count 13.4 T/CUMM (4-12)
[2022-07-11 05:52] LABS: Calcium 9.2 MG/DL (8.5-10.1); Osmolality,Calculated 287.2 MOS/KG (273-304); Potassium 4.2 MMOL/L (3.5-5.1)
[2022-07-11 05:55] LABS: Phosphorous 6.2 MG/DL (2.5-4.9); Uric Acid 13.1 MG/DL (2.6-6.0)
[2022-07-11 06:02] LABS: Bilirubin,Total 1.3 MG/DL (0.20-1.00); Calcium 8.8 MG/DL (8.5-10.1); Osmolality,Calculated 289.1 MOS/KG (273-304); Potassium 4.5 MMOL/L (3.5-5.1); Total Protein 6.5 G/DL (6.4-8.2)
[2022-07-11 06:06] LABS: Anisocytosis 1+; Band Neutrophils 27 % (0-10); Eosinophils 2 % (0-10); Lymphocytes 4 % (20-55); Ovalocytes Few; Platelet Estimate Normal; Target Cells Few; Total Cells Counted 100
[2022-07-11 06:07] LABS: Hypochromia Slight
[2022-07-11] MEDS: INSULIN LISPRO 100 UNIT/ML SUBCUT SCH ×5 (07:30→21:39)
[2022-07-11] MEDS: GABAPENTIN 400 MG CAPSULE PO SCH ×3 (09:54→21:38)
[2022-07-11] MEDS: DULoxetine 30 MG CAPSULE PO SCH (09:54)
[2022-07-11] MEDS: FERRIC GLUCONATE COMPLEX 125 MG in SODIUM CHLORIDE 0.9% 100 ML IV SCH (09:54)
[2022-07-11] MEDS: DAPAGLIFLOZIN 10 MG TABLET PO SCH (09:54)
[2022-07-11] MEDS: POLYETHYLENE GLYCOL POWDER 17 GM PACK PO SCH (09:54)
[2022-07-11] MEDS: APIXABAN 2.5 MG TABLET PO SCH ×2 (09:55→21:38)
[2022-07-11] MEDS: ATORVASTATIN 10 MG TABLET PO SCH (09:55)
[2022-07-11] MEDS: FOLIC ACID 1 MG TABLET PO SCH (09:55)
[2022-07-11] MEDS: METOPROLOL SUCCINATE XL 25 MG TABLET PO SCH (09:55)
[2022-07-11] MEDS: DOCUSATE SODIUM 100 MG/10 ML UDCUP NG SCH ×2 (09:55→21:37)
[2022-07-11] MEDS: ASPIRIN EC 81 MG TABLET PO SCH (09:55)
[2022-07-11] MEDS: PANTOPRAZOLE 40 MG VIAL IV SCH (09:55)
[2022-07-11] MEDS: LINACLOTIDE 145 MCG CAPSULE PO SCH (09:56)
[2022-07-11] MEDS ORDERED: METHYLNALTREXONE 12 MG/0.6 ML VIAL SUBCUT ONE (13:19)
[2022-07-11] MEDS ORDERED: LUBIPROSTONE 24 MCG CAPSULE PO ONE (13:20)
[2022-07-11] MEDS: traMADol 50 MG TABLET PO PRN ×2 (13:42→21:38)
[2022-07-11] MEDS: SENNA 8.6 MG TABLET PO SCH (21:37)
[2022-07-11] MEDS: AMITRIPTYLINE 50 MG TABLET PO SCH (21:38)
[2022-07-11] MEDS: DEXTROSE 5% NACL 0.9% 1,000 ML IV SCH (21:42)
[2022-07-12] MEDS: MEROPENEM 500 MG in SODIUM CHLORIDE 0.9% 100 ML IV SCH (03:58)
[2022-07-12 04:58] LABS: Arterial Base Excess iSTAT -3 MMOL/L (-2.5-2.5); Arterial Bicarbonate iSTAT 22.3 MMOL/L (20-26); Arterial O2 Saturation iSTAT 93 % (95-100); Arterial PCO2 iSTAT 38 MM HG (35-48); Arterial PO2 iSTAT 70 MM HG (80-95); Arterial Total CO2 iSTAT 23 MMO/L (23-27); Arterial pH iSTAT 7.379 (7.35-7.45)
[2022-07-12 04:59] LABS: Basophils % 0.1 % (0.0-0.8); Eosinophils # 0.3 10*3/uL (0.0-0.87); Eosinophils % 2.4 % (0.00-10.9); Hematocrit 26.2 VOL% (35.7-47.0); Hemoglobin 8.3 GM/DL (12.0-16.0); Immature Granulocytes % 0.9 %; Immature Granulocytes Absolute 0.11 #; Lymphocytes # 0.7 10*3/uL (1.4-4.0); Lymphocytes % 5.7 % (21.3-54.2); Mean Corpuscular HGB Conc 31.7 GM/DL (32-36); Mean Corpuscular Volume 82.6 FL (87-102); Mean Platelet Volume 9.4 FL (9.6-12.0); Monocytes # 1.2 10*3/uL (0.11-0.8); Monocytes % 9.8 % (1.7-12.7); Neutrophils % 81.1 % (38.7-73.9); Platelet Count 458 T/CUMM (130-400); Red Blood Count 3.17 MC/CUMM (3.8-5.5); Red Cell Distribution Width 21.2 % (9.3-17.3); White Blood Count 12.6 T/CUMM (4-12)
[2022-07-12 05:28] LABS: Calcium 9.5 MG/DL (8.5-10.1); Osmolality,Calculated 295.8 MOS/KG (273-304); Potassium 3.9 MMOL/L (3.5-5.1)
[2022-07-12] MEDS: INSULIN LISPRO 100 UNIT/ML SUBCUT SCH ×4 (09:54→22:41)
[2022-07-12] MEDS: FOLIC ACID 1 MG TABLET PO SCH (10:10)
[2022-07-12] MEDS: METOPROLOL SUCCINATE XL 25 MG TABLET PO SCH (10:10)
[2022-07-12] MEDS: GABAPENTIN 400 MG CAPSULE PO SCH ×3 (10:10→22:40)
[2022-07-12] MEDS: ATORVASTATIN 10 MG TABLET PO SCH (10:10)
[2022-07-12] MEDS: DULoxetine 30 MG CAPSULE PO SCH (10:11)
[2022-07-12] MEDS: DOCUSATE SODIUM 100 MG/10 ML UDCUP NG SCH ×2 (10:15→22:39)
[2022-07-12] MEDS: PANTOPRAZOLE 40 MG VIAL IV SCH (10:29)
[2022-07-12] MEDS: FERRIC GLUCONATE COMPLEX 125 MG in SODIUM CHLORIDE 0.9% 100 ML IV SCH (10:49)
[2022-07-12] MEDS: POLYETHYLENE GLYCOL POWDER 17 GM PACK PO SCH (10:50)
[2022-07-12] MEDS: LINACLOTIDE 145 MCG CAPSULE PO SCH ×2 (10:50→15:19)
[2022-07-12] MEDS: DEXTROSE 5% NACL 0.9% 1,000 ML IV SCH ×2 (18:00→18:50)
[2022-07-12] MEDS: SENNA 8.6 MG TABLET PO SCH (22:40)
[2022-07-12] MEDS: AMITRIPTYLINE 50 MG TABLET PO SCH (22:40)
[2022-07-13 05:55] LABS: Basophils % 0.1 % (0.0-0.8); Eosinophils # 0.3 10*3/uL (0.0-0.87); Hemoglobin 7.9 GM/DL (12.0-16.0); Immature Granulocytes % 1.5 %; Immature Granulocytes Absolute 0.19 #; Lymphocytes # 1.1 10*3/uL (1.4-4.0); Lymphocytes % 8.6 % (21.3-54.2); Mean Corpuscular HGB Conc 31.6 GM/DL (32-36); Mean Corpuscular Volume 84.2 FL (87-102); Mean Platelet Volume 9.6 FL (9.6-12.0); Monocytes # 1.6 10*3/uL (0.11-0.8); Neutrophils % 75.8 % (38.7-73.9); Platelet Count 532 T/CUMM (130-400); Red Blood Count 2.97 MC/CUMM (3.8-5.5); Red Cell Distribution Width 21.7 % (9.3-17.3)
[2022-07-13 06:14] LABS: Calcium 9.2 MG/DL (8.5-10.1); Osmolality,Calculated 299.3 MOS/KG (273-304)
[2022-07-13 06:20] LABS: Phosphorous 4.1 MG/DL (2.5-4.9); Uric Acid 14.8 MG/DL (2.6-6.0)
[2022-07-13 07:40] LABS: Immunoglobulin A (Chem) 219 MG/DL (70-400); Immunoglobulin G (Chem) 1130 MG/DL (700-1600); Immunoglobulin M (Chem) 83 MG/DL (40-230)
[2022-07-13] MEDS: ATORVASTATIN 10 MG TABLET PO SCH (08:24)
[2022-07-13] MEDS: FOLIC ACID 1 MG TABLET PO SCH (08:24)
[2022-07-13] MEDS: GABAPENTIN 400 MG CAPSULE PO SCH ×3 (08:24→21:48)
[2022-07-13] MEDS: DULoxetine 30 MG CAPSULE PO SCH (08:25)
[2022-07-13] MEDS: POLYETHYLENE GLYCOL POWDER 17 GM PACK PO SCH (08:25)
[2022-07-13] MEDS: METOPROLOL SUCCINATE XL 25 MG TABLET PO SCH (08:25)
[2022-07-13] MEDS: INSULIN LISPRO 100 UNIT/ML SUBCUT SCH ×4 (08:26→21:49)
[2022-07-13] MEDS: DOCUSATE SODIUM 100 MG/10 ML UDCUP NG SCH ×2 (08:26→21:48)
[2022-07-13] MEDS: LINACLOTIDE 145 MCG CAPSULE PO SCH (08:26)
[2022-07-13] MEDS: PANTOPRAZOLE 40 MG VIAL IV SCH (08:33)
[2022-07-13 10:05] LABS: Albumin (SPE) 3.2 G/DL (3.2-5.3); Albumin (SPE) Rel % 40.2 %; Alpha 1 (SPE) 0.6 G/DL (0.1-0.4); Alpha 1 (SPE) Rel % 7.7 %; Alpha 2 (SPE) 1.5 G/DL (0.4-1.0); Alpha 2 (SPE) Rel % 19.3 %; Beta (SPE) 1.3 G/DL (0.5-1.1); Beta (SPE) Rel % 15.8 %; Gamma (SPE) 1.4 G/DL (0.7-1.7)
[2022-07-13] MEDS: DEXTROSE 5% NACL 0.9% 1,000 ML IV SCH ×2 (10:49→17:00)
[2022-07-13] MEDS: FERRIC GLUCONATE COMPLEX 125 MG in SODIUM CHLORIDE 0.9% 100 ML IV SCH (10:49)
[2022-07-13] MEDS: SENNA 8.6 MG TABLET PO SCH (21:48)
[2022-07-13] MEDS: traMADol 50 MG TABLET PO PRN (21:48)
[2022-07-13] MEDS: AMITRIPTYLINE 50 MG TABLET PO SCH (22:48)
[2022-07-14] MEDS: MAGNESIUM HYDROXIDE SUSP 30 ML UDCUP PO PRN (01:20)
[2022-07-14 05:36] LABS: Basophils % 0.1 % (0.0-0.8); Eosinophils # 0.3 10*3/uL (0.0-0.87); Eosinophils % 1.8 % (0.00-10.9); Hematocrit 26.2 VOL% (35.7-47.0); Immature Granulocytes % 2.8 %; Immature Granulocytes Absolute 0.44 #; Lymphocytes # 1.2 10*3/uL (1.4-4.0); Lymphocytes % 7.7 % (21.3-54.2); Mean Corpuscular HGB Conc 30.5 GM/DL (32-36); Mean Corpuscular Volume 84.2 FL (87-102); Mean Platelet Volume 9.7 FL (9.6-12.0); Monocytes # 1.5 10*3/uL (0.11-0.8); Monocytes % 9.7 % (1.7-12.7); Neutrophils % 77.9 % (38.7-73.9); Platelet Count 638 T/CUMM (130-400); Red Blood Count 3.11 MC/CUMM (3.8-5.5); Red Cell Distribution Width 21.6 % (9.3-17.3); White Blood Count 15.9 T/CUMM (4-12)
[2022-07-14 06:05] LABS: Calcium 6.8 MG/DL (8.5-10.1); Osmolality,Calculated 292.5 MOS/KG (273-304); Potassium 3.6 MMOL/L (3.5-5.1)
[2022-07-14] MEDS ORDERED: DIAZEPAM 5 MG TABLET PO ONE (07:49)
[2022-07-14] MEDS: INSULIN LISPRO 100 UNIT/ML SUBCUT SCH ×4 (08:08→21:39)
[2022-07-14] MEDS: METOPROLOL SUCCINATE XL 25 MG TABLET PO SCH (08:20)
[2022-07-14] MEDS: PANTOPRAZOLE 40 MG VIAL IV SCH (08:20)
[2022-07-14] MEDS: LINACLOTIDE 145 MCG CAPSULE PO SCH ×2 (10:32→11:22)
[2022-07-14] MEDS: DOCUSATE SODIUM 100 MG/10 ML UDCUP NG SCH ×2 (11:22→21:06)
[2022-07-14] MEDS: FOLIC ACID 1 MG TABLET PO SCH (11:22)
[2022-07-14] MEDS: DULoxetine 30 MG CAPSULE PO SCH (11:22)
[2022-07-14] MEDS: ATORVASTATIN 10 MG TABLET PO SCH (11:22)
[2022-07-14] MEDS: POLYETHYLENE GLYCOL POWDER 17 GM PACK PO SCH (11:22)
[2022-07-14] MEDS: DEXTROSE 5% NACL 0.9% 1,000 ML IV SCH ×2 (11:24→23:45)
[2022-07-14] MEDS: FERRIC GLUCONATE COMPLEX 125 MG in SODIUM CHLORIDE 0.9% 100 ML IV SCH (11:24)
[2022-07-14] MEDS: GABAPENTIN 400 MG CAPSULE PO SCH ×3 (11:39→21:07)
[2022-07-14] MEDS: traMADol 50 MG TABLET PO PRN (13:39)
[2022-07-14 17:20] LABS: Kappa Free Light Chain 13.3 mg/dL; Lambda Free Light Chain 8.22 mg/dL
[2022-07-14 17:21] LABS: Antinuclear Ab, S 9.8 U
[2022-07-14] MEDS: AMITRIPTYLINE 50 MG TABLET PO SCH (21:06)
[2022-07-14] MEDS: SENNA 8.6 MG TABLET PO SCH (21:07)
[2022-07-15 04:46] LABS: Basophils % 0.2 % (0.0-0.8); Eosinophils # 0.3 10*3/uL (0.0-0.87); Eosinophils % 2.6 % (0.00-10.9); Hematocrit 24.9 VOL% (35.7-47.0); Hemoglobin 7.6 GM/DL (12.0-16.0); Immature Granulocytes % 2.5 %; Immature Granulocytes Absolute 0.28 #; Lymphocytes # 1.1 10*3/uL (1.4-4.0); Lymphocytes % 9.2 % (21.3-54.2); Mean Corpuscular HGB Conc 30.5 GM/DL (32-36); Mean Corpuscular Volume 85.6 FL (87-102); Mean Platelet Volume 9.3 FL (9.6-12.0); Monocytes # 1.4 10*3/uL (0.11-0.8); Monocytes % 12.6 % (1.7-12.7); Neutrophils % 72.9 % (38.7-73.9); Platelet Count 658 T/CUMM (130-400); Red Blood Count 2.91 MC/CUMM (3.8-5.5); Red Cell Distribution Width 21.6 % (9.3-17.3); White Blood Count 11.4 T/CUMM (4-12)
[2022-07-15 05:19] LABS: Calcium 9.5 MG/DL (8.5-10.1); Osmolality,Calculated 296.1 MOS/KG (273-304); Potassium 4.1 MMOL/L (3.5-5.1)
[2022-07-15] MEDS: INSULIN LISPRO 100 UNIT/ML SUBCUT SCH ×2 (07:23→10:43)
[2022-07-15] MEDS: DOCUSATE SODIUM 100 MG/10 ML UDCUP NG SCH (08:15)
[2022-07-15] MEDS: DULoxetine 30 MG CAPSULE PO SCH (08:15)
[2022-07-15] MEDS: PANTOPRAZOLE 40 MG VIAL IV SCH (08:15)
[2022-07-15] MEDS: ATORVASTATIN 10 MG TABLET PO SCH (08:15)
[2022-07-15] MEDS: FOLIC ACID 1 MG TABLET PO SCH (08:15)
[2022-07-15] MEDS: POLYETHYLENE GLYCOL POWDER 17 GM PACK PO SCH (08:16)
[2022-07-15] MEDS: LINACLOTIDE 145 MCG CAPSULE PO SCH (08:16)
[2022-07-15] MEDS: FERRIC GLUCONATE COMPLEX 125 MG in SODIUM CHLORIDE 0.9% 100 ML IV SCH (08:16)
[2022-07-15] MEDS: METOPROLOL SUCCINATE XL 25 MG TABLET PO SCH (08:17)
[2022-07-15] MEDS: GABAPENTIN 400 MG CAPSULE PO SCH (08:22)
[2022-07-15] MEDS: traMADol 50 MG TABLET PO PRN (10:15)
[2022-07-15] MEDS: DEXTROSE 5% NACL 0.9% 1,000 ML IV SCH ×2 (10:46→10:47)
[2022-07-15 11:54] VITALS: BP 160/65
== END 2022-07-15 11:54 | disposition swing bed (61) | DRG 467 ==
LOC: N.SDSINP 05:41 → N.OR 05:41 → N.SDSINP 05:42 → N.3E 07:02
PROVIDERS: ADMIT Orthopaedic Surgery; ATTEND Orthopaedic Surgery

== ENCOUNTER 2022-07-16 05:36 | Inpatient (IN) ==
[2022-07-16] MEDS ORDERED: MORPHINE 2 MG/1 ML SYRINGE IV STA (06:21)
[2022-07-16] MEDS ORDERED: ONDANSETRON 4 MG/2 ML VIAL IV STA (06:21)
[2022-07-16] MEDS ORDERED: SODIUM CHLORIDE 0.9% 1,000 ML IV STA (06:21)
[2022-07-16 06:32] LABS: Basophils % 0.2 % (0.0-0.8); Eosinophils % 0.2 % (0.00-10.9); Hematocrit 29.9 VOL% (35.7-47.0); Hemoglobin 9.2 GM/DL (12.0-16.0); Immature Granulocytes % 1.6 %; Immature Granulocytes Absolute 0.27 #; Lymphocytes # 0.9 10*3/uL (1.4-4.0); Lymphocytes % 5.3 % (21.3-54.2); Mean Corpuscular HGB Conc 30.8 GM/DL (32-36); Mean Corpuscular Volume 86.7 FL (87-102); Mean Platelet Volume 9.3 FL (9.6-12.0); Monocytes % 5.8 % (1.7-12.7); Neutrophils % 86.9 % (38.7-73.9); Platelet Count 802 T/CUMM (130-400); Red Blood Count 3.45 MC/CUMM (3.8-5.5); Red Cell Distribution Width 21.9 % (9.3-17.3); White Blood Count 17.2 T/CUMM (4-12)
[2022-07-16 06:42] LABS: Albumin 2.4 G/DL (3.4-5.0); Bilirubin,Total 0.5 MG/DL (0.20-1.00); Calcium 10.4 MG/DL (8.5-10.1); Osmolality,Calculated 299.6 MOS/KG (273-304); Potassium 4.2 MMOL/L (3.5-5.1); Total Protein 6.9 G/DL (6.4-8.2)
[2022-07-16] MEDS ORDERED: DOCUSATE SODIUM 100 MG CAPSULE PO PRN (10:58)
[2022-07-16] MEDS ORDERED: hydrALAZINE 20 MG/1 ML VIAL IV PRN (10:58)
[2022-07-16] MEDS ORDERED: ONDANSETRON 4 MG/2 ML VIAL IV PRN (10:58)
[2022-07-16] MEDS: DEXTROSE 5% 1,000 ML IV SCH ×2 (12:30→22:24)
[2022-07-16] MEDS: MORPHINE 2 MG/1 ML SYRINGE IV PRN (22:29)
[2022-07-17 04:44] LABS: Basophils % 0.2 % (0.0-0.8); Eosinophils # 0.3 10*3/uL (0.0-0.87); Eosinophils % 2.2 % (0.00-10.9); Hemoglobin 8.5 GM/DL (12.0-16.0); Immature Granulocytes % 2.4 %; Immature Granulocytes Absolute 0.31 #; Lymphocytes # 1.2 10*3/uL (1.4-4.0); Lymphocytes % 9.4 % (21.3-54.2); Mean Corpuscular HGB Conc 30.4 GM/DL (32-36); Mean Platelet Volume 10.1 FL (9.6-12.0); Monocytes % 8.2 % (1.7-12.7); Neutrophils % 77.6 % (38.7-73.9); Platelet Count 679 T/CUMM (130-400); Red Blood Count 3.22 MC/CUMM (3.8-5.5); Red Cell Distribution Width 22.1 % (9.3-17.3); White Blood Count 12.8 T/CUMM (4-12)
[2022-07-17 05:01] LABS: Calcium 10.2 MG/DL (8.5-10.1); Osmolality,Calculated 306.7 MOS/KG (273-304); Potassium 3.7 MMOL/L (3.5-5.1)
[2022-07-17 05:12] LABS: Hypochromia Slight; Platelet Estimate Increased
[2022-07-17] MEDS: MORPHINE 2 MG/1 ML SYRINGE IV PRN (07:36)
[2022-07-17] MEDS: DEXTROSE 5% 1,000 ML IV SCH (11:38)
[2022-07-17] MEDS: LEVOFLOXACIN INJ 500 MG/100 ML PREMIX IV SCH (15:34)
[2022-07-17] MEDS: ALBUTEROL/IPRATROPIUM 3 ML NEB RESP TX SCH ×3 (15:56→23:45)
[2022-07-17] MEDS ORDERED: LORazepam 2 MG/1 ML VIAL IV ONE (22:35)
[2022-07-18] MEDS: ALBUTEROL/IPRATROPIUM 3 ML NEB RESP TX SCH ×6 (03:50→23:49)
[2022-07-18 05:58] LABS: Basophils % 0.2 % (0.0-0.8); Eosinophils # 0.3 10*3/uL (0.0-0.87); Eosinophils % 2.3 % (0.00-10.9); Hematocrit 24.5 VOL% (35.7-47.0); Hemoglobin 7.5 GM/DL (12.0-16.0); Immature Granulocytes % 1.9 %; Immature Granulocytes Absolute 0.23 #; Lymphocytes # 1.3 10*3/uL (1.4-4.0); Lymphocytes % 10.6 % (21.3-54.2); Mean Corpuscular HGB Conc 30.6 GM/DL (32-36); Mean Platelet Volume 9.1 FL (9.6-12.0); Monocytes # 0.8 10*3/uL (0.11-0.8); Monocytes % 6.8 % (1.7-12.7); Neutrophils % 78.2 % (38.7-73.9); Platelet Count 691 T/CUMM (130-400); Red Blood Count 2.85 MC/CUMM (3.8-5.5); Red Cell Distribution Width 21.8 % (9.3-17.3); White Blood Count 12.43 T/CUMM (4-12)
[2022-07-18 06:19] LABS: Calcium 10.3 MG/DL (8.5-10.1); Osmolality,Calculated 298.1 MOS/KG (273-304)
[2022-07-18] MEDS: POTASSIUM CHLORIDE RIDER 10 MEQ/100 ML PREMIX IV PRN ×5 (06:37→14:07)
[2022-07-18] MEDS: DEXTROSE 5% 1,000 ML IV SCH ×2 (08:06→13:50)
[2022-07-18] MEDS ORDERED: LIDOCAINE 5% PATCH TRANSDERM PRN (12:07)
[2022-07-18 12:34] LABS: Hematocrit 27.4 VOL% (35.7-47.0); Hemoglobin 8.4 GM/DL (12.0-16.0)
[2022-07-18] MEDS: MORPHINE 2 MG/1 ML SYRINGE IV PRN ×2 (13:42→21:40)
[2022-07-18] MEDS: LEVOFLOXACIN INJ 500 MG/100 ML PREMIX IV SCH (15:34)
[2022-07-18] MEDS: GABAPENTIN 400 MG CAPSULE PO SCH ×2 (15:35→21:24)
[2022-07-18] MEDS: AMITRIPTYLINE 50 MG TABLET PO SCH (21:24)
[2022-07-18] MEDS: FERROUS SULFATE 325 MG TABLET PO SCH (21:24)
[2022-07-19] MEDS: ALBUTEROL/IPRATROPIUM 3 ML NEB RESP TX SCH ×6 (03:30→23:57)
[2022-07-19] MEDS: DEXTROSE 5% 1,000 ML IV SCH ×2 (07:22→11:01)
[2022-07-19 09:42] LABS: Basophils % 0.2 % (0.0-0.8); Eosinophils # 0.2 10*3/uL (0.0-0.87); Eosinophils % 1.8 % (0.00-10.9); Hematocrit 28.4 VOL% (35.7-47.0); Hemoglobin 8.7 GM/DL (12.0-16.0); Immature Granulocytes % 1.2 %; Immature Granulocytes Absolute 0.16 #; Lymphocytes % 7.9 % (21.3-54.2); Mean Corpuscular HGB Conc 30.6 GM/DL (32-36); Mean Corpuscular Volume 84.3 FL (87-102); Mean Platelet Volume 8.8 FL (9.6-12.0); Monocytes # 0.5 10*3/uL (0.11-0.8); Neutrophils % 84.9 % (38.7-73.9); Platelet Count 685 T/CUMM (130-400); Red Blood Count 3.37 MC/CUMM (3.8-5.5); Red Cell Distribution Width 22.1 % (9.3-17.3); White Blood Count 12.98 T/CUMM (4-12)
[2022-07-19 10:02] LABS: Calcium 10.4 MG/DL (8.5-10.1); Osmolality,Calculated 286.7 MOS/KG (273-304); Potassium 3.8 MMOL/L (3.5-5.1)
[2022-07-19 10:11] LABS: Polychromasia Slight
[2022-07-19 10:12] LABS: Microcytosis 1+
[2022-07-19 10:14] LABS: Platelet Estimate Increased
[2022-07-19 10:17] LABS: Anisocytosis Slight
[2022-07-19] MEDS: GABAPENTIN 400 MG CAPSULE PO SCH ×3 (10:26→21:32)
[2022-07-19] MEDS: ATORVASTATIN 10 MG TABLET PO SCH (10:26)
[2022-07-19] MEDS: ACETAMINOPHEN 325 MG TABLET PO PRN (10:27)
[2022-07-19] MEDS: ASPIRIN EC 81 MG TABLET PO SCH (10:27)
[2022-07-19] MEDS: FERROUS SULFATE 325 MG TABLET PO SCH ×2 (10:27→21:32)
[2022-07-19] MEDS: FUROSEMIDE 40 MG TABLET PO SCH (10:29)
[2022-07-19] MEDS: DULoxetine 30 MG CAPSULE PO SCH (10:29)
[2022-07-19] MEDS: FOLIC ACID 1 MG TABLET PO SCH (10:29)
[2022-07-19] MEDS ORDERED: FLUTICASONE 50 MCG NASAL SPRAY 16 GM BOTTLE BOTH NARES PRN (10:51)
[2022-07-19] MEDS: MORPHINE 2 MG/1 ML SYRINGE IV PRN ×2 (11:35→20:21)
[2022-07-19] MEDS: DEXTROSE 5% NACL 0.9% 1,000 ML IV SCH ×3 (11:35→20:21)
[2022-07-19] MEDS: ENOXAPARIN 40 MG/0.4 ML SYRINGE SUBCUT SCH (15:39)
[2022-07-19] MEDS: LEVOFLOXACIN INJ 500 MG/100 ML PREMIX IV SCH (15:40)
[2022-07-19] MEDS: AMITRIPTYLINE 50 MG TABLET PO SCH (21:32)
[2022-07-20] MEDS: ALBUTEROL/IPRATROPIUM 3 ML NEB RESP TX SCH ×5 (04:03→19:30)
[2022-07-20] MEDS: DEXTROSE 5% NACL 0.9% 1,000 ML IV SCH ×3 (04:16→19:30)
[2022-07-20 05:52] LABS: Basophils % 0.2 % (0.0-0.8); Eosinophils # 0.3 10*3/uL (0.0-0.87); Eosinophils % 2.1 % (0.00-10.9); Hematocrit 25.5 VOL% (35.7-47.0); Hemoglobin 7.7 GM/DL (12.0-16.0); Immature Granulocytes % 1.1 %; Immature Granulocytes Absolute 0.13 #; Lymphocytes # 1.3 10*3/uL (1.4-4.0); Mean Corpuscular HGB Conc 30.2 GM/DL (32-36); Mean Corpuscular Volume 85.6 FL (87-102); Mean Platelet Volume 9.7 FL (9.6-12.0); Monocytes # 0.6 10*3/uL (0.11-0.8); Monocytes % 5.1 % (1.7-12.7); Neutrophils % 80.5 % (38.7-73.9); Platelet Count 613 T/CUMM (130-400); Red Blood Count 2.98 MC/CUMM (3.8-5.5); Red Cell Distribution Width 22.1 % (9.3-17.3); White Blood Count 11.89 T/CUMM (4-12)
[2022-07-20 06:07] LABS: Albumin 2.1 G/DL (3.4-5.0); Bilirubin,Total 0.4 MG/DL (0.20-1.00); Calcium 9.8 MG/DL (8.5-10.1); Osmolality,Calculated 290.4 MOS/KG (273-304); Potassium 3.3 MMOL/L (3.5-5.1); Total Protein 6.7 G/DL (6.4-8.2)
[2022-07-20] MEDS: GABAPENTIN 400 MG CAPSULE PO SCH ×3 (09:00→20:52)
[2022-07-20] MEDS: FERROUS SULFATE 325 MG TABLET PO SCH ×2 (09:00→20:52)
[2022-07-20] MEDS: FUROSEMIDE 40 MG TABLET PO SCH (12:57)
[2022-07-20] MEDS: ENOXAPARIN 40 MG/0.4 ML SYRINGE SUBCUT SCH (12:57)
[2022-07-20] MEDS: FOLIC ACID 1 MG TABLET PO SCH (12:58)
[2022-07-20] MEDS: ASPIRIN EC 81 MG TABLET PO SCH (12:58)
[2022-07-20] MEDS: SPIRONOLACTONE 25 MG TABLET PO SCH (12:58)
[2022-07-20] MEDS: DULoxetine 30 MG CAPSULE PO SCH (12:58)
[2022-07-20] MEDS: ATORVASTATIN 10 MG TABLET PO SCH (12:58)
[2022-07-20] MEDS: LEVOFLOXACIN INJ 500 MG/100 ML PREMIX IV SCH (15:37)
[2022-07-20] MEDS: MORPHINE 2 MG/1 ML SYRINGE IV PRN (15:46)
[2022-07-20] MEDS: AMITRIPTYLINE 50 MG TABLET PO SCH (20:52)
[2022-07-21] MEDS: ALBUTEROL/IPRATROPIUM 3 ML NEB RESP TX SCH ×6 (00:15→20:08)
[2022-07-21] MEDS: DEXTROSE 5% NACL 0.9% 1,000 ML IV SCH ×3 (03:32→20:39)
[2022-07-21 06:20] LABS: Calcium 9.6 MG/DL (8.5-10.1); Osmolality,Calculated 281.1 MOS/KG (273-304); Potassium 3.7 MMOL/L (3.5-5.1)
[2022-07-21] MEDS: SPIRONOLACTONE 25 MG TABLET PO SCH (08:12)
[2022-07-21] MEDS: FOLIC ACID 1 MG TABLET PO SCH (08:12)
[2022-07-21] MEDS: ENOXAPARIN 40 MG/0.4 ML SYRINGE SUBCUT SCH (08:12)
[2022-07-21] MEDS: FUROSEMIDE 40 MG TABLET PO SCH (08:13)
[2022-07-21] MEDS: FERROUS SULFATE 325 MG TABLET PO SCH ×2 (08:13→20:37)
[2022-07-21] MEDS: DULoxetine 30 MG CAPSULE PO SCH (08:13)
[2022-07-21] MEDS: ASPIRIN EC 81 MG TABLET PO SCH (08:13)
[2022-07-21] MEDS: GABAPENTIN 400 MG CAPSULE PO SCH ×3 (08:13→20:37)
[2022-07-21] MEDS: ATORVASTATIN 10 MG TABLET PO SCH (08:13)
[2022-07-21] MEDS: MORPHINE 2 MG/1 ML SYRINGE IV PRN (09:41)
[2022-07-21] MEDS: LEVOFLOXACIN INJ 500 MG/100 ML PREMIX IV SCH (14:04)
[2022-07-21] MEDS: ACETAMINOPHEN 325 MG TABLET PO PRN ×2 (15:01→20:39)
[2022-07-21] MEDS: AMITRIPTYLINE 50 MG TABLET PO SCH (20:37)
[2022-07-22 04:53] LABS: Basophils % 0.3 % (0.0-0.8); Eosinophils # 0.4 10*3/uL (0.0-0.87); Eosinophils % 3.8 % (0.00-10.9); Hematocrit 23.8 VOL% (35.7-47.0); Hemoglobin 7.1 GM/DL (12.0-16.0); Immature Granulocytes % 0.7 %; Immature Granulocytes Absolute 0.07 #; Lymphocytes # 1.3 10*3/uL (1.4-4.0); Lymphocytes % 13.5 % (21.3-54.2); Mean Corpuscular HGB Conc 29.8 GM/DL (32-36); Mean Corpuscular Volume 86.5 FL (87-102); Mean Platelet Volume 9.6 FL (9.6-12.0); Monocytes # 0.7 10*3/uL (0.11-0.8); Monocytes % 7.5 % (1.7-12.7); Neutrophils % 74.2 % (38.7-73.9); Platelet Count 480 T/CUMM (130-400); Red Blood Count 2.75 MC/CUMM (3.8-5.5); Red Cell Distribution Width 21.4 % (9.3-17.3); White Blood Count 9.54 T/CUMM (4-12)
[2022-07-22 05:14] LABS: Calcium 9.1 MG/DL (8.5-10.1); Potassium 3.2 MMOL/L (3.5-5.1)
[2022-07-22] MEDS: DEXTROSE 5% NACL 0.9% 1,000 ML IV SCH ×3 (06:39→20:56)
[2022-07-22] MEDS: ALBUTEROL/IPRATROPIUM 3 ML NEB RESP TX SCH ×6 (07:21→21:48)
[2022-07-22] MEDS ORDERED: SODIUM CHLORIDE 0.9% 1,000 ML IV PRN (08:14)
[2022-07-22] MEDS: DULoxetine 30 MG CAPSULE PO SCH (09:05)
[2022-07-22] MEDS: ASPIRIN EC 81 MG TABLET PO SCH (09:05)
[2022-07-22] MEDS: ACETAMINOPHEN 325 MG TABLET PO PRN ×2 (09:05→23:59)
[2022-07-22] MEDS: FOLIC ACID 1 MG TABLET PO SCH (09:05)
[2022-07-22] MEDS: SPIRONOLACTONE 25 MG TABLET PO SCH (09:05)
[2022-07-22] MEDS: FERROUS SULFATE 325 MG TABLET PO SCH ×2 (09:05→20:55)
[2022-07-22] MEDS: FUROSEMIDE 40 MG TABLET PO SCH (09:06)
[2022-07-22] MEDS: GABAPENTIN 400 MG CAPSULE PO SCH ×3 (09:06→22:39)
[2022-07-22] MEDS: ATORVASTATIN 10 MG TABLET PO SCH (09:06)
[2022-07-22] MEDS: POTASSIUM CHLORIDE RIDER 10 MEQ/100 ML PREMIX IV PRN (09:07)
[2022-07-22] MEDS: APIXABAN 2.5 MG TABLET PO SCH ×2 (09:11→20:55)
[2022-07-22 19:06] LABS: Hematocrit 32.5 VOL% (35.7-47.0)
[2022-07-22 19:15] LABS: Hemoglobin 10.1 GM/DL (12.0-16.0)
[2022-07-22] MEDS: AMITRIPTYLINE 50 MG TABLET PO SCH (22:39)
[2022-07-22] MEDS ORDERED: MELATONIN 3 MG TABLET PO PRN (23:46)
[2022-07-23] MEDS: ALBUTEROL/IPRATROPIUM 3 ML NEB RESP TX SCH ×5 (04:11→19:05)
[2022-07-23] MEDS: DEXTROSE 5% NACL 0.9% 1,000 ML IV SCH (05:13)
[2022-07-23 05:57] LABS: Basophils % 0.4 % (0.0-0.8); Eosinophils # 0.3 10*3/uL (0.0-0.87); Eosinophils % 3.8 % (0.00-10.9); Hematocrit 26.6 VOL% (35.7-47.0); Hemoglobin 8.1 GM/DL (12.0-16.0); Immature Granulocytes % 0.6 %; Immature Granulocytes Absolute 0.04 #; Lymphocytes # 0.9 10*3/uL (1.4-4.0); Mean Corpuscular HGB Conc 30.5 GM/DL (32-36); Mean Corpuscular Volume 85.8 FL (87-102); Mean Platelet Volume 9.3 FL (9.6-12.0); Monocytes # 0.7 10*3/uL (0.11-0.8); Monocytes % 9.5 % (1.7-12.7); Neutrophils % 72.7 % (38.7-73.9); Platelet Count 403 T/CUMM (130-400); Red Cell Distribution Width 19.7 % (9.3-17.3); White Blood Count 6.85 T/CUMM (4-12)
[2022-07-23 06:23] LABS: Osmolality,Calculated 307.6 MOS/KG (273-304); Potassium 2.7 MMOL/L (3.5-5.1)
[2022-07-23] MEDS: GABAPENTIN 400 MG CAPSULE PO SCH ×3 (08:52→20:15)
[2022-07-23] MEDS: SPIRONOLACTONE 25 MG TABLET PO SCH (08:52)
[2022-07-23] MEDS: DULoxetine 30 MG CAPSULE PO SCH (08:52)
[2022-07-23] MEDS: POTASSIUM CHLORIDE RIDER 10 MEQ/100 ML PREMIX IV PRN ×5 (08:52→18:15)
[2022-07-23] MEDS: ASPIRIN EC 81 MG TABLET PO SCH (08:52)
[2022-07-23] MEDS: APIXABAN 2.5 MG TABLET PO SCH ×2 (08:53→20:16)
[2022-07-23] MEDS: ATORVASTATIN 10 MG TABLET PO SCH (08:53)
[2022-07-23] MEDS: FUROSEMIDE 40 MG TABLET PO SCH (08:53)
[2022-07-23] MEDS: FERROUS SULFATE 325 MG TABLET PO SCH ×2 (08:53→20:16)
[2022-07-23] MEDS: FOLIC ACID 1 MG TABLET PO SCH (08:53)
[2022-07-23] MEDS ORDERED: ERGOCALCIFEROL 50,000 UNIT CAPSULE PO SCH (09:00)
[2022-07-23] MEDS: MORPHINE 2 MG/1 ML SYRINGE IV PRN (11:00)
[2022-07-23] MEDS ORDERED: MAGNESIUM SULF RIDER 4 GM/100 ML PREMIX IV ONE (12:00)
[2022-07-23] MEDS: AMITRIPTYLINE 50 MG TABLET PO SCH (20:16)
[2022-07-24] MEDS: ALBUTEROL/IPRATROPIUM 3 ML NEB RESP TX SCH ×3 (01:31→10:30)
[2022-07-24] MEDS: DEXTROSE 5% NACL 0.9% 1,000 ML IV SCH (03:04)
[2022-07-24 05:15] LABS: Basophils % 0.4 % (0.0-0.8); Eosinophils # 0.3 10*3/uL (0.0-0.87); Eosinophils % 4.4 % (0.00-10.9); Hematocrit 29.5 VOL% (35.7-47.0); Hemoglobin 9.1 GM/DL (12.0-16.0); Immature Granulocytes % 0.4 %; Immature Granulocytes Absolute 0.03 #; Lymphocytes # 1.2 10*3/uL (1.4-4.0); Lymphocytes % 16.9 % (21.3-54.2); Mean Corpuscular HGB Conc 30.8 GM/DL (32-36); Mean Corpuscular Volume 85.8 FL (87-102); Mean Platelet Volume 9.5 FL (9.6-12.0); Monocytes # 0.6 10*3/uL (0.11-0.8); Monocytes % 9.3 % (1.7-12.7); Neutrophils % 68.6 % (38.7-73.9); Platelet Count 453 T/CUMM (130-400); Red Blood Count 3.44 MC/CUMM (3.8-5.5); Red Cell Distribution Width 19.7 % (9.3-17.3); White Blood Count 6.87 T/CUMM (4-12)
[2022-07-24 06:27] LABS: Osmolality,Calculated 282.8 MOS/KG (273-304); Potassium 3.1 MMOL/L (3.5-5.1)
[2022-07-24] MEDS ORDERED: POTASSIUM CHLORIDE 20 MEQ TABLET PO ONE ×2 (08:16→12:00)
[2022-07-24] MEDS: SPIRONOLACTONE 25 MG TABLET PO SCH (09:04)
[2022-07-24] MEDS: ASPIRIN EC 81 MG TABLET PO SCH (09:04)
[2022-07-24] MEDS: FERROUS SULFATE 325 MG TABLET PO SCH (09:04)
[2022-07-24] MEDS: GABAPENTIN 400 MG CAPSULE PO SCH (09:04)
[2022-07-24] MEDS: APIXABAN 2.5 MG TABLET PO SCH (09:04)
[2022-07-24] MEDS: FUROSEMIDE 40 MG TABLET PO SCH (09:04)
[2022-07-24] MEDS: FOLIC ACID 1 MG TABLET PO SCH (09:04)
[2022-07-24] MEDS: ATORVASTATIN 10 MG TABLET PO SCH (09:04)
[2022-07-24] MEDS: DULoxetine 30 MG CAPSULE PO SCH (09:04)
[2022-07-24 12:11] VITALS: BP 166/100
[2022-07-24] MEDS: ACETAMINOPHEN 325 MG TABLET PO PRN (12:23)
== END 2022-07-24 15:41 | disposition home health service (06) | DRG 388 ==
LOC: EDUNIT# → EDBD → N.ED 05:36 → N.3E 11:38 → SUATTDRO 11:38 → N.3E 16:29
PROVIDERS: ADMIT Family Medicine; ATTEND Internal Medicine